=== PATIENT | female | born 1985 | race Caucasian/White ===

== ENCOUNTER 2022-07-31 14:11 | Emergency (ER) | payer MEDICAID ==
[~2022-07-31] VITALS: Ht 165.1 cm; Wt 83.9 kg
[2022-07-31] MEDS ORDERED: IV NORMAL SALINE 500 ML BAG IV ONE (14:45)
[2022-07-31 15:19] LABS: HEMATOCRIT 28.9 % (31.2-41.9); MEAN CORPUSCULAR HEMOGLOBIN 23.1 uug (24.7-32.8); MEAN CORPUSCULAR VOLUME 71.5 fL (75.5-95.3); PLATELET COUNT (AUTO) 172 K/uL (179-408)
--- NOTE | 2022-07-31 15:30 | NUR ---
Pt seen by . Safety measures in place. Will continue to monitor.
[2022-07-31 15:33] LABS: CREATININE 0.9 mg/dL (0.6-1.3); POTASSIUM 3.5 mmol/L (3.5-5.1)
[2022-07-31 15:38] LABS: BILIRUBIN,DIRECT 0.1 mg/dL (0.0-0.2); BILIRUBIN,TOTAL 0.3 mg/dL (0.2-1.0); TOTAL PROTEIN, SERUM 8.5 g/dL (6.4-8.2)
[2022-07-31] MEDS ORDERED: ACETAMINOPHEN 325 MG TABLET PO ONE (15:45)
--- NOTE | 2022-07-31 16:03 | NUR ---
Pt wants to leave AMA. Informed MD. Safety measures in place. Will continue to monitor.
[2022-07-31] MEDS ORDERED: HYDROCODONE/APAP 5-325MG TABLET ONE (16:12)
[2022-07-31] MEDS ORDERED: HYDROCODONE/APAP 5-325MG TABLET PO ONE (16:15)
--- NOTE | 2022-07-31 16:28 | NUR ---
Pt left AMA. Had Pt sign AMA form. Pt is aware of consequences. Took out Pt's IV.
[2022-07-31 16:30] VITALS: BP 120/70
== END 2022-07-31 16:31 | disposition left against medical advice (07) ==
LOC: ER 14:11
DX: R10.9 Unspecified abdominal pain (principal); Z88.8 Allergy status to other drugs, medicaments and biological substances
CPT/HCPCS: 99284; 74176; 96360; 80076; 80048; 83690; 85025; 36415; J7040; A4663